=== PATIENT | female | born 1975 | race Caucasian/White ===

== ENCOUNTER 2018-06-11 20:17 | Emergency (ER) | payer OTHER, SELFPAY ==
[2018-06-11 20:19] VITALS: BP 120/76; PULSE 84; RESP 18; TEMP 36.9; O2SAT 97; BMI 36.6
--- NOTE | 2018-06-11 20:21 | RAD_ITS ---
STUDY: X-RAY - RIGHT FOOT CLINICAL: Female, 42 years old. Right foot pain after falling. History of prior fractures. TECHNIQUE: 3 view(s) of the foot. COMPARISON: None. FINDINGS: Small avulsion fragment from the lateral surface of the anterior calcaneus juxtapose the calcaneal cuboid articulation. Normal body of the talus. There are several small free fragments along the dorsal surface of the anterior talus and near the talonavicular joint, avulsive injuries of indeterminate age. Otherwise a normal articulations of the hindfoot and midfoot. There is a prior screw fixation of the medial cuneiform to the middle cuneiform/base of the second metatarsal and the base of the first metatarsal to the medial cuneiform with a small plate and 2 screws transversely across the base of the first metatarsal. Normal alignment is maintained. There does not appear to be disruption of the hardware. Negative for a new metatarsal fracture. There is degenerative arthrosis of the metatarsophalangeal joint of the hallux . Normal tibial and fibular sesamoid bones. Normal interphalangeal joint of the great toe. Normal phalanges of the great toe. Normal second through fifth metatarsophalangeal joints. Normal interphalangeal joints and phalanges of the lesser toes. The soft tissue structures are unremarkable. RAD/Foot min 3 Views IMPRESSION: Indeterminant age avulsion injuries from the dorsal surface of the anterior talus and juxtaposed talonavicular joint. Otherwise negative for an acute fracture of the hindfoot. Indeterminate age avulsion fragment from the lateral surface of the anterior calcaneus juxtapose the calcaneocuboid articulation. Otherwise negative for acute fracture of the mid or healed portion of the calcaneus. Prior fracture repair of the first metatarsal second metatarsal, medial and middle cuneiforms with hardware as described above. Negative for disruption of the pre-existing hardware. Otherwise negative for acute fracture of the midfoot or forefoot. Electronically Signed: Leeanne Chung MD at 21:30 EST , Service support ,
--- NOTE | 2018-06-11 20:25 | RAD_ITS ---
STUDY: X-RAY - RIGHT ANKLE REASON FOR EXAM: Female, 42 years old. Right ankle pain after falling. TECHNIQUE: 3 view(s) of the ankle. COMPARISON: None. FINDINGS: Normal visualized distal tibia and fibula. Normal medial and lateral malleoli. Normal tibiotalar articulation and ankle mortise. 2 small avulsion injuries from the dorsal surface of the anterior calcaneus and at the dorsal surface of the talonavicular joint and a small avulsion injury from the lateral surface of the calcaneus as described under right foot radiographs of the same day. The articulations of the hindfoot and midfoot are located. Prior hardware repair of mid foot fractures as described on earlier foot radiographs of the same day. RAD/Ankle min 3 Views IMPRESSION: Negative for acute fracture of the distal fibula or tibia. Ankle located. Soft tissue swelling about the proximal foot and lateral ankle. Avulsion injuries of the talus and calcaneus as described under right foot radiographs of the same day. Electronically Signed: Leeanne Chung MD at 21:32 EST , Service support ,
--- NOTE | 2018-06-11 22:04 | ED.VISSUMM ---
- ER Visit Summary Date of Service: 06/11/18 Chief Complaint: Right foot and ankle pain History of Present Illness: The patient is a 42 F with no primary care physician. She reports that she slipped in her driveway and injured her right foot and ankle. She reports she has pain 6 out of 10 with walking and she is pain-free at rest. She denies any other injuries. No blow to the head or loss of consciousness. No neck, back, wrist, or hip pain. She is not on blood thinners. Physical Examination: Vitals: Stable. Afebrile. General: Well-nourished and well-developed. Head: Normocephalic atraumatic. Neck: Supple, no lymphadenopathy. No JVD. Nontender. Cardiovascular: Regular rate and rhythm. No murmurs. Respiratory: No respiratory distress. Clear to auscultation bilaterally. Abdominal: Soft, nontender, nondistended, normal bowel sounds. No guarding, rebound, or peritoneal signs. Back: Nontender. Extremities: No pain over her right medial or lateral malleoli. No pain over the base the fifth metatarsal. She does have contusion, soft tissue swelling, moderate tenderness palpation to the lateral surface of her proximal foot.. Skin: Normal color, no rash. Neurologic: Alert and oriented ?3. Cranial nerves II through XII are intact. Normal strength and sensation. Psych: Normal affect. Test Results: Clinical Impression(s) from Imaging Studies Foot X-Ray 06/11/18 20:21 IMPRESSION: Indeterminant age avulsion injuries from the dorsal surface of the anterior talus and juxtaposed talonavicular joint. Otherwise negative for an acute fracture of the hindfoot. Indeterminate age avulsion fragment from the lateral surface of the anterior calcaneus juxtapose the calcaneocuboid articulation. Otherwise negative for acute fracture of the mid or healed portion of the calcaneus. Prior fracture repair of the first metatarsal second metatarsal, medial and middle cuneiforms with hardware as described above. Negative for disruption of the pre-existing hardware. Otherwise negative for acute fracture of the midfoot or forefoot. Electronically Signed: Leeanne Chung MD at 21:30 EST , Service support , Ankle X-Ray 06/11/18 20:25 IMPRESSION: Negative for acute fracture of the distal fibula or tibia. Ankle located. Soft tissue swelling about the proximal foot and lateral ankle. Avulsion injuries of the talus and calcaneus as described under right foot radiographs of the same day. Electronically Signed: Leeanne Chung MD at 21:32 EST , Service support , Emergency Department Course and Treatment: The patient refused pain medications. I reviewed the x-rays with her. I suspect that the small fragments of bone are actually chronic. Unfortunately, I do not have an old x-ray for comparison. Treatment Plan: Patient will be discharged in a walking boot and placed on [place]. Instructed to follow-up with the surgeon who did her Lisfranc repair previously in 1 week if not improving. Return to the emergency department for any worsening symptoms. Disposition: To home in improved and stable condition. Impression: 1. Right foot sprain. This note was generated with [employer] dictation software. It may contain incorrect words, spelling, and punctuation that were not noted in review of the chart prior to signing ED Disposition - Plan for ED Patient: Disposition: Home or Assisted Living Chief Complaint: Lower Extremity Injury Instructions: ED Sprain Foot Prescriptions: Hydrocodone Bitart/Apap 5-325 [[place] 5MG-325MG] 1 tablet PO Q6H PRN PRN 3 Days #10 tablet PRN Reason: Pain Referrals: Doctor,Your [STAFF PHYSICIAN] - 1 Week if not improving
[2018-06-11 22:19] VITALS: RESP 14
== END 2018-06-11 22:20 | disposition home or self-care (01) ==
LOC: ED 21:23
PROVIDERS: Emergency Provider Emergency Medicine
DX: S93.601A Unspecified sprain of right foot, initial encounter (principal); W01.0XXA Fall on same level from slipping, tripping and stumbling without subsequent striking against object, initial encounter; Y93.9 Activity, unspecified; Y92.008 Other place in unspecified non-institutional (private) residence as the place of occurrence of the external cause; Y99.9 Unspecified external cause status
CPT/HCPCS: 73610; 73630; 99283